=== PATIENT | male | born 1960 | race Caucasian/White ===

== ENCOUNTER → 2017-09-08 | Outpatient (CLI) | payer SELFPAY | END | disposition home or self-care (01) | LOC: LAB 12:49 → US 13:00 | DX: R60.0 Localized edema (principal); I10 Essential (primary) hypertension; Z86.718 Personal history of other venous thrombosis and embolism ==

== ENCOUNTER 2020-11-08 11:49 | Emergency (ER) | payer SELFPAY ==
[~2020-11-08] VITALS: Ht 187.9 cm; Wt 90.7 kg
[2020-11-08 12:24] LABS: HEMATOCRIT 41.7 % (42.0-52.0); MEAN CORPUSCULAR HGB 31.7 pg (27.0-31.0); MEAN CORPUSCULAR HGB CONC 33.3 g/dl (33.0-37.0); MEAN PLATELET VOLUME 10.1 fl (9.6-12.3); PLATELET COUNT AUTOMATED 381 10*3/uL (130-400); RED BLOOD COUNT 4.39 10*6/uL (4.50-5.90); RED CELL DISTRI WIDTH 13.1 % (0-14.5); WHITE BLOOD COUNT 17.2 10*3/uL (4.8-10.8)
[2020-11-08 12:39] LABS: ALBUMIN 3.4 gm/dl (3.1-4.5); ALKALINE PHOSPHATASE 86 U/L (45-117); BUN 20 mg/dl (7-24); CHLORIDE 106 mmol/L (98-107); CREATININE 0.87 mg/dL (0.70-1.30); SGOT/AST 15 IU/L (3-35); SGPT/ALT 26 U/L (12-78); SODIUM 134 mmol/L (136-145); TOTAL PROTEIN 8.5 gm/dL (6.4-8.2)
[2020-11-08 12:40] LABS: TOTAL CELLS COUNTED 100 #CELLS
[2020-11-08 12:41] LABS: PLATELET SUFFICIENCY NORMAL (NORMAL)
[2020-11-08] MEDS ORDERED: CLINDAMYCIN HC300 MG PO (18:04)
[2020-11-08] MEDS ORDERED: PREDNISONE20 M1 PO (18:04)
== END 2020-11-08 18:08 | disposition home or self-care (01) ==
LOC: ED 11:49
PROVIDERS: Physician Assistant
DX: M27.2 Inflammatory conditions of jaws (principal); K08.89 Other specified disorders of teeth and supporting structures

== ENCOUNTER 2021-08-02 13:14 | Emergency (ER) | payer OTHER ==
[~2021-08-02] VITALS: Ht 187.9 cm; Wt 86.2 kg
[~2021-08-02 13:14] MED LIST: CLINDAMYCIN HC300 MG PO; PREDNISONE20 M1 PO
[2021-08-02 13:51] LABS: BASO % 0.3 % (0.0-1.0); EOS # 0.1 10*3/uL (0.0-0.4); EOS % 0.5 % (1.0-4.0); LYMPH # 1.7 10*3/uL (1.3-4.4); LYMPH % 13.2 % (27.0-41.0); MEAN CELL VOLUME 92.7 fl (80.0-94.0); MEAN CORPUSCULAR HGB 31.9 pg (27.0-31.0); MEAN CORPUSCULAR HGB CONC 34.4 g/dl (33.0-37.0); MEAN PLATELET VOLUME 10.5 fl (9.6-12.3); MONO % 7.7 % (3.0-9.0); NEUT # 10.1 10*3/uL (2.3-7.9); PLATELET COUNT AUTOMATED 272 10*3/uL (130-400); RED BLOOD COUNT 4.64 10*6/uL (4.50-5.90); RED CELL DISTRI WIDTH 13.2 % (0-14.5); WHITE BLOOD COUNT 12.9 10*3/uL (4.8-10.8)
[2021-08-02 14:14] LABS: ALKALINE PHOSPHATASE 53 U/L (45-117); BUN 16 mg/dl (7-24); CHLORIDE 105 mmol/L (98-107); CREATININE 1.46 mg/dL (0.70-1.30); POTASSIUM 4.1 mmol/L (3.5-5.1); SGOT/AST 27 IU/L (3-35); SGPT/ALT 42 U/L (12-78); SODIUM 138 mmol/L (136-145); TOTAL PROTEIN 7.2 gm/dL (6.4-8.2)
[2021-08-02 16:19] LABS: BILIRUBIN Negative (Negative); BLOOD Negative (Negative); CLARITY Cloudy (Clear); COLOR Yellow (Yellow); GLUCOSE Negative (Negative); KETONE Trace (Negative); LEUKO ESTERASE Negative (Negative); NITRITE Negative (Negative); PH 6.5 (4.5-8.0); SPECIFIC GRAVITY 1.015 (1.001-1.030); UROBILINOGEN 0.2 E.U./dl (0.0-1.0)
[2021-08-02 16:38] LABS: BACTERIA 1+; EPITHELIAL CELLS TNTC; HYALINE CAST TNTC; RBC 0-2 rbc/hpf (0-2); YEAST TRACE
== END 2021-08-02 18:16 | disposition home or self-care (01) ==
LOC: ED 13:14
PROVIDERS: Emergency Medicine
DX: T78.3XXA Angioneurotic edema, initial encounter (principal); R55 Syncope and collapse; I10 Essential (primary) hypertension; Y92.89 Other specified places as the place of occurrence of the external cause